=== PATIENT | male | born 1970 | race Caucasian/White ===

== ENCOUNTER 2023-11-24 05:50 | Day surgery (SDC) | payer OTHER ==
[~2023-11-24] VITALS: Ht 172.7 cm; Wt 83.9 kg
[2023-11-24 06:35] VITALS: O2SAT 98
[2023-11-24] MEDS ORDERED: ROCURONIUM BROMIDE 10 MG/ML (ZEMURON) ONE (07:30)
[2023-11-24] MEDS ORDERED: LIDOCAINE 1% *INHALATION* MPF 5 ML VIAL INH ONE (07:30)
[2023-11-24] MEDS ORDERED: NS IRRIG SOLN 1000 ML IR ONE (07:30)
[2023-11-24] MEDS ORDERED: LR 1,000 ML IV.SOLN IV ONE (07:30)
[2023-11-24] MEDS ORDERED: PROPOFOL 200MG/ 20ML VIAL (DIPRIVAN) IV ONE (07:30)
[2023-11-24] MEDS ORDERED: SEVOFLURANE 15 MIN GAS INH ONE (07:30)
[2023-11-24] MEDS ORDERED: fentaNYL CITRATE/PF 100 MCG/2 ML AMP ONE (07:31)
[2023-11-24] MEDS ORDERED: MIDAZOLAM HCL 2 MG/2 ML VIAL (VERSED) ONE (07:32)
[2023-11-24] MEDS ORDERED: CEFAZOLIN 2 GM IVPB PREMIX 50 ML IV ONE (08:04)
[2023-11-24] MEDS ORDERED: LABETALOL 100 MG/ 20ML VIAL IVP PRN (08:30)
[2023-11-24] MEDS ORDERED: ONDANSETRON HCL 4 MG/2 ML VIAL IVP PRN (08:30)
[2023-11-24] MEDS ORDERED: ePHEDrine sulfate 50 MG/ML VIAL IVP PRN (08:30)
[2023-11-24] MEDS ORDERED: HYDROmorphone 1 MG/ML INJ. CARTRIDGE IVP PRN ×3 (08:30)
[2023-11-24] MEDS ORDERED: METOCLOPRAMIDE HCL 10 MG/2 ML VIAL IVP PRN (08:30)
[2023-11-24 14:52] VITALS: BP_SYST 136; PULSE 53; RESP 17
== END 2023-11-24 10:35 | disposition home or self-care (01) ==
LOC: SDS 05:50 → SMU 05:50 → SDS 10:35
PROVIDERS: ATTEND Urology
DX: N48.1 Balanitis (principal)
CPT/HCPCS: 87081; 54161; 93005; 88304; J0690; J2001; J3465; J2704; J3010; J7120